=== PATIENT | male | born 1940 | race Caucasian/White ===

== ENCOUNTER 2022-05-08 15:26 | Outpatient (CLI) | payer MEDICARE, SELFPAY ==
[2022-05-08 22:08] LABS: Albumin* 4.5 g/dL (3.3-5.0); Chloride* 102 mmol/L (96-114); Sodium* 140 mmol/L (135-149)
[2022-05-08 22:09] LABS: Potassium* 4.7 mmol/L (3.6-5.1)
[2022-05-08 22:11] LABS: Alkaline Phosphatase* 84 U/L (40-150); Aspartate Amino Transferase* 28 U/L (12-35); Bilirubin Total* 1.1 mg/dL (0.1-1.5); Blood Urea Nitrogen* 30 mg/dL (7-30); Carbon Dioxide* 28 mmol/L (20-32); Cholesterol* 188 mg/dL (90-199); Creatinine* 0.9 mg/dL (0.5-1.5); Estimated Glomerular Filt Rate 85 ml/min; Glucose* 90 mg/dL (60-115); Total Protein* 7.2 g/dL (6.0-8.3)
[2022-05-08 22:12] LABS: Alanine Aminotransferase* 22 U/L (4-50); Calcium* 9.5 mg/dL (8.4-10.6); HDL Cholesterol* 49 mg/dL (>=40); LDL Cholesterol Calculated 99 mg/dL (<100); Triglycerides* 201 mg/dL (40-149)
[2022-05-08 22:41] LABS: PSA Screen* 3.44 ng/mL (0.10-4.00)
== END 2022-05-08 15:27 | disposition home or self-care (01) ==
PROVIDERS: PCP Family Medicine; Visit Provider Family Medicine
DX: E78.5 Hyperlipidemia, unspecified (principal); I10 Essential (primary) hypertension; I25.10 Atherosclerotic heart disease of native coronary artery without angina pectoris; N40.0 Benign prostatic hyperplasia without lower urinary tract symptoms; Z95.820 Peripheral vascular angioplasty status with implants and grafts
CPT/HCPCS: 80053; 80061; 84153

== ENCOUNTER 2023-05-04 15:45 | Outpatient (CLI) | payer MEDICARE, SELFPAY | END 2023-05-04 15:46 | disposition home or self-care (01) | PROVIDERS: PCP Family Medicine; Visit Provider Family Medicine | DX: E78.5 Hyperlipidemia, unspecified (principal); I10 Essential (primary) hypertension; L03.90 Cellulitis, unspecified; I42.9 Cardiomyopathy, unspecified | CPT/HCPCS: 80053; 83880 ==

== ENCOUNTER 2024-06-10 15:59 | Outpatient (CLI) | payer MEDICARE, SELFPAY | END 2024-06-10 16:00 | disposition home or self-care (01) | PROVIDERS: PCP Family Medicine; Visit Provider Family Medicine | DX: I10 Essential (primary) hypertension (principal); E78.5 Hyperlipidemia, unspecified; I25.10 Atherosclerotic heart disease of native coronary artery without angina pectoris; N40.0 Benign prostatic hyperplasia without lower urinary tract symptoms; Z12.5 Encounter for screening for malignant neoplasm of prostate | CPT/HCPCS: 80053; 80061; 82043; 82570; G0103 ==

== ENCOUNTER 2025-06-16 15:57 | Outpatient (CLI) | payer MEDICARE, SELFPAY | END 2025-06-16 15:58 | disposition home or self-care (01) | PROVIDERS: PCP Family Medicine; Visit Provider Family Medicine | DX: N40.0 Benign prostatic hyperplasia without lower urinary tract symptoms (principal); I10 Essential (primary) hypertension; E78.5 Hyperlipidemia, unspecified | CPT/HCPCS: 80053; 80061; G0103 ==